=== PATIENT | male | born 1990 | race Two or more races ===

== ENCOUNTER 2017-02-17 13:03 | Day surgery (SDC) | payer OTHER, MEDICAID ==
[2017-02-17] MEDS ORDERED: LACTATED RINGER'S 1,000 ML IV* (14:00)
[2017-02-17] MEDS ORDERED: LIDOCAINE 2% (SDV) 5 ML INJ (14:59)
[2017-02-17] MEDS ORDERED: CEFAZOLIN 1 GM INJ (14:59)
[2017-02-17] MEDS ORDERED: PROPOFOL 20 ML (14:59)
[2017-02-17] MEDS ORDERED: MEPERIDINE 100 MG INJ (15:00)
[2017-02-17] MEDS ORDERED: morphine (1 MG/ML) 10ML SYRINGE IV (17:06)
[2017-02-17] MEDS: morphine (1 MG/ML) 10ML SYRINGE IV ×2 (17:09→17:19)
[2017-02-17] MEDS ORDERED: DIPHENHYDRAMINE 50 MG INJ (17:24)
[2017-02-17] MEDS ORDERED: MEPERIDINE 25 MG INJ IV (17:30)
[2017-02-17] MEDS ORDERED: HYDROmorphONE (0.2 MG/ML) 10ML SYG IV ×3 (17:30)
[2017-02-17] MEDS ORDERED: FENTAnyl 50 MCG/ML VIAL IV ×3 (17:30)
[2017-02-17] MEDS ORDERED: ONDANSETRON 4 MG INJ IV (17:30)
[2017-02-17] MEDS: DIPHENHYDRAMINE 50 MG INJ IV (17:36)
[2017-02-17] MEDS: OXYCODONE/ACETAMINOPHEN (5/325) TAB PO (17:40)
== END 2017-02-17 18:54 | disposition home or self-care (01) ==
LOC: SDS 13:03
DX: S62.336B Displaced fracture of neck of fifth metacarpal bone, right hand, initial encounter for open fracture (principal); X58.XXXA Exposure to other specified factors, initial encounter; E66.01 Morbid (severe) obesity due to excess calories; Z68.41 Body mass index [BMI] 40.0-44.9, adult; F17.200 Nicotine dependence, unspecified, uncomplicated
CPT/HCPCS: 26615; 73130-RT